=== PATIENT | female | born 1980 | race Caucasian/White ===

== ENCOUNTER 2019-11-07 20:50 | Emergency (ER) | payer BC ==
--- NOTE | 2019-11-07 22:30 | RADIOLOGY REPORT (SQ) ---
EXAM DESCRIPTION: Left hand, three views CLINICAL HISTORY: R/O FOREIGN BODY COMPARISON: None FINDINGS: Three x-ray views of the left hand were submitted. There is no acute fracture or dislocation. Bone mineralization is within normal limits. There is no radiopaque foreign body material. IMPRESSION: No acute fracture or dislocation.
[2019-11-07] MEDS ORDERED: DIPH/PERTUSS(ACELL)/TETANUS VAC/PF 0.5 ML SYR (>=10YO) IM ONE (23:10)
[2019-11-07] MEDS ORDERED: LIDOCAINE 1% INJ-PF (10 MG/ML) 30 ML SDV INJ ONE (23:21)
--- NOTE | 2019-11-08 00:10 | ER Document Report ---
ED General - General Chief Complaint: Laceration Stated Complaint: LEFT HAND LACERATION Time Seen by Provider: 11/07/19 22:48 - HPI Notes: Chief complaint: Finger lacerations 39-year-old [id number] female generally healthy on no regular medications was slaughtering a chicken and a barnyard approximately 1 hour prior to arrival here and accidentally superficially lacerated the volar surface of her left index and middle fingers. She reported moderate bleeding at the time. Her applied antiseptic and a compression dressing and transported her here. Last tetanus booster over 5 years ago. She reports adverse reaction to azithromycin and penicillin in the past. - Related Data Allergies/Adverse Reactions: azithromycin Allergy (Verified 11/07/19 20:57) Home Medications: MULTIVITAMINE Past Medical History - General Information source: Patient - Social History Smoking Status: Former Smoker Lives with: Spouse/Significant other Family History: Reviewed & Not Pertinent Patient has suicidal ideation: No Patient has homicidal ideation: No Review of Systems - Review of Systems Notes: Constitutional: Negative for fever. HENT: Negative for sore throat. Eyes: Negative for visual changes. Cardiovascular: Negative for chest pain. Respiratory: Negative for shortness of breath. Gastrointestinal: Negative for abdominal pain, vomiting or diarrhea. Genitourinary: Negative for dysuria. Musculoskeletal: Negative for back pain. Skin: Negative for rash. Neurological: Negative for headaches, weakness or numbness. 10 point ROS negative except as marked above and in HPI. Physical Exam - Vital signs Vitals: Temp Pulse Resp BP Pulse Ox 97.9 F 93 20 141/86 H 96 11/07/19 20:55 11/07/19 20:55 11/07/19 20:55 11/07/19 20:55 11/07/19 20:55 - Notes Notes: GENERAL: Very anxious middle-aged female appearing in moderate pain. SKIN: Good turgor no rashes. HEAD: Normocephalic atraumatic. EYES: PERRLA. EOMI. Conjunctivae and sclerae clear. NECK: Supple. No masses or thyromegaly. No adenopathy. Carotids 2+ without bruits. No JVD. BACK: Symmetrical without tenderness. CHEST: Respirations unlabored. Breath sounds clear and symmetrical. HEART: Regular rhythm. No murmur gallop or rub. ABDOMEN: Soft nontender without masses, organomegaly or rebound. Bowel sounds normally active. No bruits. EXTREMITIES: Patient has 2 superficial transverse linear lacerations over her left index and middle fingers. Both of these are approximately at the level of the proximal inner phalangeal joint. There is no active bleeding at this time. She has preserved distal motor, sensory function and normal cap refill distally. No edema. No calf tenderness. Cap refill less than 1.5 seconds. Dorsalis pedis and posterior tibial pulses 3+ and symmetrical. NEUROLOGICAL: Alert and oriented x3. Nonfocal. PSYCHIATRIC: Appropriate affect. Course - Re-evaluation Re-evalutation: 11/08/19 00:08 Laceration repair performed by physicians dental assistant instructor. See separate note. - Vital Signs Vital signs: Temp Pulse Resp BP Pulse Ox 97.9 F 93 20 141/86 H 96 11/07/19 20:55 11/07/19 20:55 11/07/19 20:55 11/07/19 20:55 11/07/19 20:55 Discharge - Discharge Clinical Impression: Lacerations left hand Condition: Stable Disposition: HOME, SELF-CARE Instructions: Laceration Care ([facility]) Additional Instructions: Ibuprofen 200 mg [id number] 2 tablets 3 times daily with food as needed for pain. Take prescribed antibiotic as directed. See your primary care doctor or return here and 10 days for removal of stitches. Return here as needed for new or worsening symptoms: Pain that is worsening or unimproved Uncontrolled vomiting High fever or shaking chills Overall worsening Prescriptions: Clindamycin HCl 300 mg PO TID #30 capsule Referrals: [facility] [Provider Group] - Follow up as needed
[2019-11-08 00:26] VITALS: BP 132/87
== END 2019-11-08 00:26 | disposition home or self-care (01) ==
LOC: ER 20:50
DX: S61.213A Laceration without foreign body of left middle finger without damage to nail, initial encounter (principal); W26.0XXA Contact with knife, initial encounter; Z23 Encounter for immunization; Z88.3 Allergy status to other anti-infective agents
CPT/HCPCS: 99283; 90471; 73130; 90715; 12001; J3490